=== PATIENT | male | born 1945 | race Caucasian/White ===

== ENCOUNTER 2017-08-25 10:27 | Outpatient (CLI) | payer MEDICARE ==
--- NOTE | 2017-08-25 13:27 | RAD ---
ESOPHOGRAM: History: Dysphagia. FINDINGS: Air contrast and single column barium evaluation of the esophagus was performed. No abnormalities of the upper esophagus were apparent aside from tertiary contractions. Small hiatal hernia is visible wi th severe non-compulsive tertiary type contractions. A 12 mm barium tablet transverse the esophagus without holdup. IMPRESSION: Small hiatal hernia with severe gastroesophageal reflux and tertiary esophageal contractions. No foca l lesion or stricture is apparent. POS: [facility]
== END 2017-08-25 10:28 | disposition home or self-care (01) ==
LOC: RAD 10:27
PROVIDERS: ATTEND Otolaryngology Plastic Surgery within the Head & Neck
DX: R13.10 Dysphagia, unspecified (principal); K44.9 Diaphragmatic hernia without obstruction or gangrene; K21.9 Gastro-esophageal reflux disease without esophagitis; K22.8 Other specified diseases of esophagus
CPT/HCPCS: 74220

== ENCOUNTER 2019-01-09 10:05 | Outpatient (CLI) | payer MEDICARE ==
--- NOTE | 2019-01-09 11:41 | MRI ---
[facility] Upper Ext Jt Rt WO Con History: [MA 75.101 tear of rotator cuff] Comparison: None. Findings: Biceps tendon: King disrupture of the biceps tendon. No abnormal intra-articular or extra arterial biceps tendon remains. Labrum: Circumferential labral tearing worse in the superior labrum which is scar remaining. Rotator cuff: There is high-grade tearing of the craniad one half one half fibers of the subscapulari s tendon with full-thickness perforations and interstitial delamination. Full-thickness full width lord praspinatus tendon tear from the footprint with a 1.7 cm gap. Torn fibers are markedly tendinotic. Th ere is some bridging scar in situ. High-grade undersurface partial tearing of the infraspinatus tendo n. Teres minor is intact. Soft tissues: Large subacromial/subdeltoid bursa effusion. Large subcoracoid effusion. There is synov itis of the subscapularis recess and subcoracoid bursa. Multiple free bodies in the subscapularis rec ess measuring up to 7 mm. 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 Type I acromion. Normal glenoid ve rsion. Small subcortical cysts of the anterior glenoid. High-grade cartilage delamination anterior-inferior glenoid. Muscles: The muscle bulk of these supraspinatus is approximately 40% atrophied. Remaining muscular st ructures normal. No significant edema. Impression: 1. Full-thickness full width supraspinous tendon tear from the footprint with a 1.7 cm gap. Torn fibe rs are markedly tendinotic with some bridging scar in situ. 2. Full-thickness rupture of the biceps tendon. 3. Circumferential labral tearing. 4. Anterior-inferior glenoid high-grade cartilage loss. 5. High-grade tearing of the craniad one half fibers of the subscapularis with multifocal full-thickn ess perforations and interstitial delamination. 6. Multiple free bodies in the subscapularis recess measuring up to 7 mm. 6. Large joint effusion as well as subcoracoid bursa effusion with synovitis.
== END 2019-01-09 10:06 | disposition home or self-care (01) ==
LOC: TBSIIMAG 10:05
PROVIDERS: ATTEND Orthopaedic Surgery
DX: M75.121 Complete rotator cuff tear or rupture of right shoulder, not specified as traumatic (principal); S46.211A Strain of muscle, fascia and tendon of other parts of biceps, right arm, initial encounter; S43.401A Unspecified sprain of right shoulder joint, initial encounter; M25.411 Effusion, right shoulder; M94.8X1 Other specified disorders of cartilage, shoulder; M65.811 Other synovitis and tenosynovitis, right shoulder

== ENCOUNTER 2019-12-14 15:11 | Outpatient (CLI) | payer MEDICARE ==
--- NOTE | 2019-12-14 15:57 | ULT ---
US Bladder History: Evaluate post void residual. Comparison: None. Findings: Real-time grayscale and color evaluation of the urinary bladder was performed. The prevoid urinary bladder volume is approximately 190 mL. The post void volume is 22 mL. Impression: Post void volume volume of 22 mL.
== END 2019-12-14 15:12 | disposition home or self-care (01) ==
LOC: BICULT 15:11
PROVIDERS: ATTEND Family Medicine
DX: N40.1 Benign prostatic hyperplasia with lower urinary tract symptoms (principal)
CPT/HCPCS: 76856

== ENCOUNTER 2021-02-10 09:39 | Outpatient (CLI) | payer MEDICARE | END 2021-02-10 09:40 | disposition home or self-care (01) | LOC: BICMRI 09:39 | PROVIDERS: ATTEND Family Medicine | DX: M47.26 Other spondylosis with radiculopathy, lumbar region (principal); M48.061 Spinal stenosis, lumbar region without neurogenic claudication | CPT/HCPCS: 72148 ==

== ENCOUNTER 2021-10-17 21:41 | Emergency (ER) | payer MEDICARE ==
[2021-10-17 23:03] LABS: #Eosinphils 0.1 thou/uL (0.0-0.7); #Lymphocytes 1.9 thou/uL (1.20-3.40); #Neutrophils 9.9 thou/uL (1.40-6.50); %Basophils 0.2 % (0.0-1.0); %Eosinophils 0.7 % (0.0-10.0); %Lymphocytes 14.6 % (21.0-51.0); %Monocytes 7.4 % (0.0-10.0); %Neutrophils 77.2 % (42.0-75.0); Hemoglobin 14.4 g/dL (14.0-18.0); Mean Corpuscular Hemoglobin 32.1 pg (27.0-31.0); Mean Corpuscular Volume 94.4 fL (78.0-98.0); Platelet Count 320 thou/uL (130-400); Red Blood Cell (RBC) Count 4.48 mill/uL (4.70-6.10); White Blood Cell (WBC) Count 12.9 thou/uL (4.8-10.8)
[2021-10-17] MEDS ORDERED: Mag-Al 1200 mg/1200 mg/30 ML UDCUP ONE (23:11)
[2021-10-17] MEDS ORDERED: Lidocaine Viscous Sol 2% 15 ml UD Cup ONE (23:11)
[2021-10-17 23:26] LABS: ALT (SGPT) 24 U/L (8-55); AST (SGOT) 27 U/L (5-34); Albumin 4.2 g/dL (3.4-4.8); Alkaline Phosphatase 35 U/L (40-110); Anion Gap 17 mmol/L (10-20); BUN (Urea Nitrogen) 27 mg/dL (8.4-25.7); Bilirubin, Total 0.6 mg/dL (0.2-1.2); Calc. Creatinine Clearance 0 mL/min (70-130); Calcium 9.6 mg/dL (7.8-10.44); Carbon Dioxide 21 mmol/L (23-31); Chloride 100 mmol/L (98-107); Globulin 3.3 g/dL (2.4-3.5); Glucose 130 mg/dL (83-110); Lipase 25 U/L (8-78); Potassium 4.6 mmol/L (3.5-5.1); Protein, Total 7.5 g/dL (5.8-8.1); Sodium 133 mmol/L (136-145)
== END 2021-10-18 00:05 | disposition home or self-care (01) ==
LOC: ERS 21:41
DX: R09.89 Other specified symptoms and signs involving the circulatory and respiratory systems (principal); I10 Essential (primary) hypertension; E11.9 Type 2 diabetes mellitus without complications; E78.00 Pure hypercholesterolemia, unspecified; Z79.84 Long term (current) use of oral hypoglycemic drugs; Z79.899 Other long term (current) drug therapy
CPT/HCPCS: 36415; 70360; 71046; 80053; 83690; 84484; 85025; 93005

== ENCOUNTER 2021-10-21 10:09 | Outpatient (CLI) | payer MEDICARE | END 2021-10-21 10:10 | disposition home or self-care (01) | LOC: TBSIIMAG 10:09 | PROVIDERS: ATTEND Surgery | DX: M47.26 Other spondylosis with radiculopathy, lumbar region (principal); M48.062 Spinal stenosis, lumbar region with neurogenic claudication | CPT/HCPCS: 72148 ==

== ENCOUNTER 2021-11-06 10:02 | Outpatient (CLI) | payer MEDICARE ==
[2021-11-06 11:49] LABS: Hemoglobin 12.7 g/dL (13.5-17.5); Mean Corpuscular HGB CONC 31.8 g/dL (32.0-36.0); Mean Corpuscular Hemoglobin 30.8 pg (27.0-33.0); Mean Corpuscular Volume 96.6 fl (81.2-95.1); Platelet Count 259 10x3/uL (150-450); RBC Distribution Width 13.1 % (11.5-14.5); Red Blood Cell (RBC) Count 4.13 10x6/uL (4.32-5.72); White Blood Cell (WBC) Count 7.5 10x3/uL (3.5-10.5)
[2021-11-06 11:54] LABS: PTT 24.4 sec (22.0-33.0); Prothrombin Time 10.6 sec (9.5-12.1)
[2021-11-06 11:55] LABS: Anion Gap 13 mmol/L (10-20); BUN (Urea Nitrogen) 17 mg/dL (8.4-25.7); Calc. Creatinine Clearance 0 mL/min (70-130); Calcium 9.5 mg/dL (7.8-10.44); Carbon Dioxide 27 mmol/L (23-31); Chloride 103 mmol/L (98-107); Glucose 103 mg/dL (83-110); Potassium 4.6 mmol/L (3.5-5.1); Sodium 138 mmol/L (136-145)
[2021-11-06 18:26] LABS: SARS-CoV-2 PCR by NAA Not Detected (NotDetected)
== END 2021-11-06 10:03 | disposition home or self-care (01) ==
LOC: LABBT 10:02
PROVIDERS: ATTEND Surgery
DX: Z01.818 Encounter for other preprocedural examination (principal); M48.062 Spinal stenosis, lumbar region with neurogenic claudication; M54.16 Radiculopathy, lumbar region; Z20.822 Contact with and (suspected) exposure to COVID-19
CPT/HCPCS: 80048; 85027; 85610; 85730; 93005; U0003; U0005; 93010

== ENCOUNTER 2021-11-11 08:16 | Observation (INO) | payer MEDICARE ==
[2021-11-11] MEDS ORDERED: Thrombin 5000 UNITS/5 ML VIAL ONE (09:55)
[2021-11-11] MEDS ORDERED: Fentanyl 250 MCG/5 ML VIAL ONE (10:04)
[2021-11-11] MEDS ORDERED: ceFAZolin 2 GM/Dextrose 50 ML IVPB ONE (10:08)
[2021-11-11] MEDS ORDERED: Dexamethasone 20 MG/5 ML VIAL ONE (10:22)
[2021-11-11] MEDS ORDERED: PROPOFOL 200 MG/20 ML VIAL ONE (10:22)
[2021-11-11] MEDS ORDERED: Lidocaine 1% PF 5 ML VIAL ONE (10:22)
[2021-11-11] MEDS ORDERED: Rocuronium Bromide 10 MG/ML (10ML VIAL) ONE (10:22)
[2021-11-11] MEDS ORDERED: Metoclopramide HCl 10 MG/2 ML VIAL ONE (10:22)
[2021-11-11] MEDS ORDERED: ePHEDrine 50 MG/ML VIAL ONE (10:22)
[2021-11-11] MEDS ORDERED: Ketorolac Tromethamine 30 MG/ML VIAL ONE (10:22)
[2021-11-11] MEDS ORDERED: Ondansetron PF 4 MG/2 ML Vial ONE (10:22)
[2021-11-11] MEDS ORDERED: PHENYLEPHRINE-NS 100 MCG/ML 10 ML SYRINGE ONE (10:22)
[2021-11-11] MEDS ORDERED: Morphine Sulfate 2 MG/ML SYRINGE SLOW IVP PRN (11:54)
[2021-11-11] MEDS ORDERED: Ondansetron HCl/PF 4 MG/2 ML Vial IVP PRN (11:54)
[2021-11-11] MEDS ORDERED: PACU-Morphine 4MG/ML VIAL SLOW IVP PRN (11:54)
[2021-11-11] MEDS ORDERED: Promethazine HCl 25 MG/ML VIAL IM PRN (11:54)
[2021-11-11] MEDS ORDERED: HYDROmorphone 2 MG/ML VIAL SLOW IVP PRN (11:54)
[2021-11-11] MEDS ORDERED: Promethazine HCl 25 MG/ML VIAL IVPB PRN (11:54)
[2021-11-11] MEDS ORDERED: SUGAMMADEX SODIUM 200 MG/2 ML VIAL ONE ×2 (12:09→12:23)
[2021-11-11] MEDS ORDERED: HYDROcodone/Acetaminophen 7.5/325 mg Tablet PO PRN (12:39)
[2021-11-11] MEDS ORDERED: traMADol HCl 50 MG TAB PO PRN (12:39)
[2021-11-11] MEDS ORDERED: Acetaminophen/Codeine 30-300mg Tablet PO PRN (12:39)
[2021-11-11] MEDS ORDERED: Ondansetron PF 4 MG/2 ML Vial IVP PRN (12:39)
[2021-11-11] MEDS ORDERED: Acetaminophen 325 MG TAB PO PRN (12:39)
[2021-11-11] MEDS ORDERED: Calcium Carbonate 500 MG ChewTAB PO PRN (12:42)
[2021-11-11] MEDS ORDERED: hydrALAZINE 20 MG/ML VIAL SLOW IVP PRN (12:43)
[2021-11-11] MEDS ORDERED: Fentanyl 100 MCG/2 ML VIAL ONE ×2 (12:58→16:03)
[2021-11-11] MEDS ORDERED: Morphine 4 MG/ML VIAL SLOW IVP PRN (12:58)
[2021-11-11] MEDS ORDERED: HYDROmorphone 2 MG/ML VIAL ONE (12:59)
[2021-11-11 17:54] VITALS: BMI 39.1
[2021-11-11] MEDS ORDERED: ceFAZolin 2 GM/Dextrose 50 ML 2 GM in Premix Bag 1 BAG IVPB SCH (18:00)
[2021-11-11] MEDS: metFORMIN 500 MG TAB PO SCH (18:13)
[2021-11-11] MEDS: Sodium Chloride 0.9% 1,000 ML IV SCH ×2 (18:14→18:17)
[2021-11-11] MEDS: CEFAZOLIN 2 GM in Sodium Chloride 0.9% 100 ML IVPB SCH (19:27)
[2021-11-11] MEDS ORDERED: Atorvastatin Calcium 40 MG TAB PO SCH (21:00)
[2021-11-12] MEDS: CEFAZOLIN 2 GM in Sodium Chloride 0.9% 100 ML IVPB SCH (03:05)
[2021-11-12] MEDS: metFORMIN 500 MG TAB PO SCH (08:41)
[2021-11-12] MEDS ORDERED: Lisinopril 20 MG TAB PO SCH (09:00)
[2021-11-12] MEDS ORDERED: Multivit, Therapeutic 1 TAB PO SCH (09:00)
[2021-11-12] MEDS ORDERED: VITAMIN K2 100 MCG PO SCH (09:00)
[2021-11-12 12:39] VITALS: BP 143/78; TEMP 97.9
== END 2021-11-12 12:43 | disposition home or self-care (01) ==
LOC: SDC 08:16 → T4-B 12:39
PROVIDERS: ADMIT Surgery; ATTEND Surgery
PROC: 01NB0ZZ Release Lumbar Nerve, Open Approach (ICD-10-PCS; principal; 2021-11-11)
DX: M48.062 Spinal stenosis, lumbar region with neurogenic claudication (principal); M54.16 Radiculopathy, lumbar region; M48.07 Spinal stenosis, lumbosacral region; Z79.84 Long term (current) use of oral hypoglycemic drugs; Z79.899 Other long term (current) drug therapy
CPT/HCPCS: 63047; 63048; 76000; 96374; 96375; 96376; G0378 ×2; J0690; J1100; J1170; J1885; J2270; J2405; J2704; J2765; J3010; J3370; J3490; J7050

== ENCOUNTER 2025-04-27 12:17 | Outpatient (CLI) | payer MEDICARE | END 2025-04-27 12:18 | disposition home or self-care (01) | LOC: SCSMRI 12:17 | PROVIDERS: ATTEND Physical Medicine & Rehabilitation | DX: M54.16 Radiculopathy, lumbar region (principal); M48.061 Spinal stenosis, lumbar region without neurogenic claudication; M48.07 Spinal stenosis, lumbosacral region | CPT/HCPCS: 72148 ==